=== PATIENT | male | born 1980 | race Caucasian/White ===

== ENCOUNTER 2018-11-15 12:37 | Emergency (ER) | payer MEDICAID ==
[~2018-11-15] VITALS: Ht 185.4 cm; Wt 97.7 kg
[2018-11-15 12:44] VITALS: BP 111/72
[2018-11-15] MEDS ORDERED: CLOT30CR TOP (13:29)
== END 2018-11-15 13:47 | disposition home or self-care (01) ==
LOC: ER 12:38
DX: L29.9 Pruritus, unspecified (principal); F15.90 Other stimulant use, unspecified, uncomplicated; F17.200 Nicotine dependence, unspecified, uncomplicated; Z79.899 Other long term (current) drug therapy
CPT/HCPCS: 99282

== ENCOUNTER 2018-12-04 09:58 | Emergency (ER) | payer MEDICAID ==
[~2018-12-04] VITALS: Ht 185.4 cm; Wt 97.7 kg
[2018-12-04 09:58] VITALS: BP 127/77
[~2018-12-04 09:58] MED LIST: CLOT30CR TOP
[2018-12-04] MEDS ORDERED: TRIA15CR61 TOP (10:20)
== END 2018-12-04 10:30 | disposition home or self-care (01) ==
LOC: ER 09:58
DX: L28.0 Lichen simplex chronicus (principal); F15.90 Other stimulant use, unspecified, uncomplicated; Z79.899 Other long term (current) drug therapy
CPT/HCPCS: 99283

== ENCOUNTER 2018-12-28 09:55 | Emergency (ER) | payer MEDICAID ==
[~2018-12-28] VITALS: Ht 185.4 cm; Wt 95.8 kg
[~2018-12-28 09:55] MED LIST changes: +TRIA15CR61 TOP
[2018-12-28 12:22] VITALS: BP 130/77
[2018-12-28] MEDS ORDERED: ketorolac trometh. 30mg/ml inj. IV ONE (12:35)
[2018-12-28] MEDS ORDERED: normal saline 1000ML IV soln IVB ONE (12:35)
[2018-12-28] MEDS ORDERED: ondansetron/PF 4mg/2ml inj IV ONE (12:35)
[2018-12-28 13:05] LABS: BASOPHILS % (AUTO) 0.4 % (0-1); EOSINOPHILS # (AUTO) 0.1 X10'3 (0-0.9); EOSINOPHILS % (AUTO) 0.8 % (0-6); HEMATOCRIT 46.1 % (42.0-52.0); HEMOGLOBIN 15.9 g/dl (14.0-17.9); LYMPHOCYTES # (AUTO) 1.3 X10'3 (1.1-4.8); LYMPHOCYTES % (AUTO) 15.2 % (21-51); MEAN CORPUSCULAR HEMOGLOBIN 31.6 PG (27.0-31.0); MEAN CORPUSCULAR HGB CONC 34.6 g/dL (33.0-36.5); MEAN CORPUSCULAR VOLUME 91.5 FL (78-98); MEAN PLATELET VOLUME 7.9 FL (7.4-10.4); MONOCYTES # (AUTO) 0.4 X10'3 (0-0.9); MONOCYTES % (AUTO) 4.8 % (2-12); NEUTROPHILS # (AUTO) 6.8 X10'3 (1.8-7.7); NEUTROPHILS % (AUTO) 78.8 % (42-75); PLATELET COUNT 250 X10'3 (140-440); RED BLOOD COUNT 5.04 X10'6 (4.70-6.10); RED CELL DISTRIBUTION WIDTH 12.9 % (11.5-14.5); WHITE BLOOD COUNT 8.6 X10'3 (4.5-11.0)
[2018-12-28 13:10] LABS: CLARITY,URINE CLOUDY (Clear); COLOR,URINE YELLOW (Yellow); GLUCOSE, URINE NEGATIVE (Neg); KETONES,URINE NEGATIVE (Neg); LEUKOCYTE ESTERASE ,URINE NEGATIVE (Neg); NITRITES, URINE NEGATIVE (Neg); OCCULT BLOOD,URINE LARGE (Neg); PH,URINE 7.5 (4.8-8.0); PROTEIN,URINE 100 mg/dl (Neg); UA COLLECTION TYPE CLN CATCH MIDSTREAM
[2018-12-28 13:19] LABS: ALANINE AMINOTRANSFERASE 24 U/L (12-78); ALBUMIN/GLOBULIN RATIO 1.3 (1.1-1.5); ALKALINE PHOSPHATASE 57 IU/L (46-116); ANION GAP 10 (8-16); ASPARTATE AMINO TRANSFERASE 11 U/L (10-37); BILIRUBIN,TOTAL 0.6 MG/DL (0.1-1.0); BLOOD UREA NITROGEN 15 MG/DL (7-18); BUN/CREATININE RATIO 13.9 (5.4-32.0); CALCIUM 9.6 MG/DL (8.5-10.1); CHLORIDE 104 MMOL/L (99-107); CREATININE 1.08 MG/DL (0.60-1.10); GLUCOSE 110 MG/DL (70-104); POTASSIUM 3.8 MMOL/L (3.5-5.1); SODIUM 140 MMOL/L (135-145); TOTAL CARBON DIOXIDE 26.5 MMOL/L (24-32); TOTAL PROTEIN 7.2 G/DL (6.4-8.2); eGFR 77 ML/MIN
[2018-12-28 13:26] LABS: AMORPHOUS PHOSPHATES 2+; BACTERIA,URINE 1+ /HPF (Neg); CAL OXALATE CRYSTALS 1+ /HPF (NEGATIVE); RBC,URINE 50-100 /HPF (0-2); SQUAMOUS EPITHELIAL CELL,UR FEW /LPF (FEW)
[2018-12-28 13:27] LABS: WBC CLUMPS,URINE FEW /HPF (NEGATIVE); WBC,URINE 0-4 /HPF (0-4)
[2018-12-28] MEDS ORDERED: ketorolac tromethamine 15mg/ml inj. IM ONE (14:05)
[2018-12-28] MEDS ORDERED: ketorolac trometh. 30mg/ml inj. IM ONE (14:15)
[2018-12-28] MEDS ORDERED: HYDR-4353 PO (14:59)
[2018-12-28] MEDS ORDERED: IBUP-1985 PO (14:59)
[2018-12-28] MEDS ORDERED: FLO0.4C PO (14:59)
== END 2018-12-28 15:30 | disposition home or self-care (01) ==
LOC: ER 09:55
DX: N20.0 Calculus of kidney (principal); F15.90 Other stimulant use, unspecified, uncomplicated; Z79.899 Other long term (current) drug therapy
CPT/HCPCS: 36415; 74176; 80053; 81001; 85025; 96372; 99284; J1885; J2405

== ENCOUNTER 2019-01-03 04:41 | Emergency (ER) | payer MEDICAID ==
[~2019-01-03] VITALS: Ht 185.4 cm; Wt 97.7 kg
[~2019-01-03 04:41] MED LIST changes: +FLO0.4C PO; +HYDR-4353 PO; +IBUP-1985 PO
[2019-01-03] MEDS ORDERED: ketorolac trometh. 30mg/ml inj. IV ONE (05:00)
[2019-01-03] MEDS ORDERED: normal saline 1000ML IV soln IVB ONE (05:00)
[2019-01-03] MEDS ORDERED: ondansetron/PF 4mg/2ml inj IV ONE (05:00)
[2019-01-03 05:15] LABS: CLARITY,URINE CLEAR (Clear); COLOR,URINE YELLOW (Yellow); GLUCOSE, URINE NEGATIVE (Neg); KETONES,URINE TRACE mg/dl (Neg); LEUKOCYTE ESTERASE ,URINE NEGATIVE (Neg); NITRITES, URINE NEGATIVE (Neg); OCCULT BLOOD,URINE TRACE-INTACT (Neg); PH,URINE 5.5 (4.8-8.0); PROTEIN,URINE NEGATIVE (Neg); UROBILINOGEN,URINE 0.2 E.U/dL (0.2-1.0)
[2019-01-03 05:18] LABS: UA COLLECTION TYPE VOIDED
[2019-01-03 05:39] LABS: BACTERIA,URINE NONE SEEN /HPF (Neg); MUCUS STRANDS MODERATE /LPF (Neg); RBC,URINE 0-2 /HPF (0-2); SQUAMOUS EPITHELIAL CELL,UR NONE SEEN /LPF (FEW); WBC,URINE 0-4 /HPF (0-4)
[2019-01-03 06:01] LABS: BASOPHILS # (AUTO) 0.1 X10'3 (0-0.2); BASOPHILS % (AUTO) 0.7 % (0-1); EOSINOPHILS # (AUTO) 0.2 X10'3 (0-0.9); EOSINOPHILS % (AUTO) 3.1 % (0-6); HEMATOCRIT 41.3 % (42.0-52.0); HEMOGLOBIN 14.3 g/dl (14.0-17.9); LYMPHOCYTES # (AUTO) 1.9 X10'3 (1.1-4.8); MEAN CORPUSCULAR HGB CONC 34.7 g/dL (33.0-36.5); MEAN CORPUSCULAR VOLUME 92.1 FL (78-98); MEAN PLATELET VOLUME 7.7 FL (7.4-10.4); MONOCYTES # (AUTO) 0.5 X10'3 (0-0.9); MONOCYTES % (AUTO) 7.2 % (2-12); NEUTROPHILS # (AUTO) 4.2 X10'3 (1.8-7.7); PLATELET COUNT 263 X10'3 (140-440); RED BLOOD COUNT 4.48 X10'6 (4.70-6.10); RED CELL DISTRIBUTION WIDTH 13.2 % (11.5-14.5); WHITE BLOOD COUNT 6.9 X10'3 (4.5-11.0)
[2019-01-03 06:11] LABS: ALANINE AMINOTRANSFERASE 20 U/L (12-78); ALBUMIN 3.4 G/DL (3.4-5.0); ALKALINE PHOSPHATASE 56 IU/L (46-116); ANION GAP 9 (8-16); ASPARTATE AMINO TRANSFERASE 13 U/L (10-37); BILIRUBIN,TOTAL 0.3 MG/DL (0.1-1.0); BLOOD UREA NITROGEN 7 MG/DL (7-18); BUN/CREATININE RATIO 7.7 (5.4-32.0); CALCIUM 8.3 MG/DL (8.5-10.1); CHLORIDE 107 MMOL/L (99-107); CREATININE 0.91 MG/DL (0.60-1.10); GLUCOSE 96 MG/DL (70-104); LIPASE 104 U/L (73-393); POTASSIUM 3.8 MMOL/L (3.5-5.1); SODIUM 142 MMOL/L (135-145); TOTAL CARBON DIOXIDE 26.2 MMOL/L (24-32); TOTAL PROTEIN 6.7 G/DL (6.4-8.2); eGFR > 90 ML/MIN
[2019-01-03] MEDS ORDERED: HYDR-4353 PO (06:21)
[2019-01-03] MEDS ORDERED: CEPH500C5 PO (06:21)
[2019-01-03] MEDS ORDERED: IBUP-1986 PO (06:22)
[2019-01-03] MEDS ORDERED: HYDROcodone/acetaminophen 10/325mg tab PO ONE (06:25)
--- NOTE | 2019-01-03 06:35 | NUR ---
PT REPORTS HE DROVE HERE BUT HAS A PHONE AND WILL CALL FOR A RIDE BEING MEDICATED WITH [employer]. WITNESSED PT CALL FOR RIDE.
[2019-01-03 07:29] VITALS: BP 140/88
== END 2019-01-03 07:31 | disposition home or self-care (01) ==
LOC: ER 04:41
DX: N23 Unspecified renal colic (principal); L08.89 Other specified local infections of the skin and subcutaneous tissue; F15.90 Other stimulant use, unspecified, uncomplicated; F17.200 Nicotine dependence, unspecified, uncomplicated; Z79.899 Other long term (current) drug therapy
CPT/HCPCS: 36415; 80053; 81001; 83690; 85025; 96374; 96375; 99283; J1885; J2405; J7030

== ENCOUNTER 2020-06-26 16:17 | Emergency (ER) | payer MEDICAID ==
[~2020-06-26] VITALS: Ht 185.4 cm; Wt 100.0 kg
[~2020-06-26 16:17] MED LIST changes: -CLOT30CR TOP; +CLOT30CR19 TOP; -FLO0.4C PO; -HYDR-4353 PO; +IBUP-1986 PO; -TRIA15CR61 TOP
[2020-06-26 16:45] VITALS: BP 134/78
[2020-06-26 17:50] LABS: BASOPHILS # (AUTO) 0.1 X10'3 (0-0.2); BASOPHILS % (AUTO) 0.6 % (0-1); EOSINOPHILS # (AUTO) 0.2 X10'3 (0-0.9); EOSINOPHILS % (AUTO) 2.2 % (0-6); HEMATOCRIT 41.6 % (42.0-52.0); HEMOGLOBIN 14.3 g/dl (14.0-17.9); LYMPHOCYTES # (AUTO) 2.1 X10'3 (1.1-4.8); LYMPHOCYTES % (AUTO) 21.6 % (21-51); MEAN CORPUSCULAR HEMOGLOBIN 31.5 PG (27.0-31.0); MEAN CORPUSCULAR HGB CONC 34.4 g/dL (33.0-36.5); MEAN CORPUSCULAR VOLUME 91.6 FL (78-98); MEAN PLATELET VOLUME 8.1 FL (7.4-10.4); MONOCYTES # (AUTO) 0.7 X10'3 (0-0.9); MONOCYTES % (AUTO) 6.9 % (2-12); NEUTROPHILS # (AUTO) 6.6 X10'3 (1.8-7.7); NEUTROPHILS % (AUTO) 68.7 % (42-75); PLATELET COUNT 260 X10'3 (140-440); RED BLOOD COUNT 4.54 X10'6 (4.70-6.10); RED CELL DISTRIBUTION WIDTH 12.5 % (11.5-14.5); WHITE BLOOD COUNT 9.6 X10'3 (4.5-11.0)
[2020-06-26 18:10] LABS: ALANINE AMINOTRANSFERASE 20 U/L (12-78); ALBUMIN 3.9 G/DL (3.4-5.0); ALBUMIN/GLOBULIN RATIO 1.3 (1.1-1.5); ALKALINE PHOSPHATASE 42 IU/L (46-116); ANION GAP 10 (8-16); ASPARTATE AMINO TRANSFERASE 18 U/L (10-37); BILIRUBIN,TOTAL 0.3 MG/DL (0.1-1.0); BLOOD UREA NITROGEN 15 MG/DL (7-18); BUN/CREATININE RATIO 12.6 (5.4-32.0); CALCIUM 8.9 MG/DL (8.5-10.1); CHLORIDE 104 MMOL/L (99-107); CREATININE 1.19 MG/DL (0.60-1.10); GLUCOSE 141 MG/DL (70-104); LIPASE 85 U/L (73-393); POTASSIUM 4.1 MMOL/L (3.5-5.1); SODIUM 142 MMOL/L (135-145); TOTAL CARBON DIOXIDE 28.5 MMOL/L (24-32); TOTAL PROTEIN 6.9 G/DL (6.4-8.2); eGFR 68 ML/MIN
[2020-06-26] MEDS ORDERED: morphine 4 MG/ML inj SYRINge IV ONE (19:20)
[2020-06-26] MEDS ORDERED: ketorolac tromethamine 15mg/ml inj. IV ONE (19:20)
[2020-06-26] MEDS ORDERED: ondansetron/PF 4mg/2ml inj IV ONE (19:20)
[2020-06-26 19:38] LABS: CLARITY,URINE CLEAR (Clear); COLOR,URINE YELLOW (Yellow); GLUCOSE, URINE NEGATIVE (Neg); KETONES,URINE NEGATIVE (Neg); LEUKOCYTE ESTERASE ,URINE NEGATIVE (Neg); NITRITES, URINE NEGATIVE (Neg); OCCULT BLOOD,URINE MODERATE (Neg); PH,URINE 5.5 (4.8-8.0); PROTEIN,URINE NEGATIVE (Neg); UROBILINOGEN,URINE 0.2 E.U/dL (0.2-1.0)
[2020-06-26 19:45] LABS: UA COLLECTION TYPE CLN CATCH MIDSTREAM
[2020-06-26 19:46] LABS: BACTERIA,URINE NONE SEEN /HPF (Neg); SQUAMOUS EPITHELIAL CELL,UR FEW /LPF (FEW); WBC,URINE NONE SEEN /HPF (0-4)
[2020-06-26] MEDS ORDERED: ondansetron 4mg rapidly disintigrating tab PO ONE (20:00)
[2020-06-26] MEDS ORDERED: ketorolac tromethamine 15mg/ml inj. IM ONE (20:05)
[2020-06-26] MEDS ORDERED: morphine 4 MG/ML inj SYRINge IM ONE (20:05)
[2020-06-26] MEDS ORDERED: ONDA4TAB6 PO (21:09)
[2020-06-26] MEDS ORDERED: FLO0.4C PO (21:09)
[2020-06-26] MEDS ORDERED: HYDR-4353 PO (21:09)
== END 2020-06-26 21:30 | disposition home or self-care (01) ==
LOC: ER 16:17
DX: N20.9 Urinary calculus, unspecified (principal); R11.0 Nausea; R10.84 Generalized abdominal pain; F15.90 Other stimulant use, unspecified, uncomplicated; Z87.442 Personal history of urinary calculi; Z79.2 Long term (current) use of antibiotics; Z79.899 Other long term (current) drug therapy
CPT/HCPCS: 36415; 74176; 80053; 81001; 83690; 85025; 96372; 99284; J1885; J2270

== ENCOUNTER 2022-01-29 19:34 | Emergency (ER) | payer MEDICAID ==
[~2022-01-29] VITALS: Ht 185.4 cm; Wt 102.3 kg
[~2022-01-29 19:34] MED LIST changes: +ONDA4TAB6 PO
[2022-01-29] MEDS ORDERED: SULF1TAB49 PO (20:58)
[2022-01-29 21:42] VITALS: BP 129/80
== END 2022-01-29 21:44 | disposition home or self-care (01) ==
LOC: ER 19:35
DX: L02.511 Cutaneous abscess of right hand (principal); F17.200 Nicotine dependence, unspecified, uncomplicated; F15.10 Other stimulant abuse, uncomplicated; Z87.442 Personal history of urinary calculi; Z79.899 Other long term (current) drug therapy; Z79.2 Long term (current) use of antibiotics
CPT/HCPCS: 10060; 99283; A6222; J7030; A6449